=== PATIENT | female | born 1935 | race Caucasian/White ===

== ENCOUNTER 2020-12-07 19:01 | Inpatient (IN) | payer MEDICARE, OTHER ==
[~2020-12-07] VITALS: Ht 149.9 cm; Wt 58.1 kg
[2020-12-07 20:54] LABS: RED BLOOD COUNT 3.64 M/UL (4.00-5.10); WHITE BLOOD COUNT 12.2 K/UL (4.5-11.0)
[2020-12-07] MEDS ORDERED: LUMIGAN 0.01%2.5 ML EYEBOTH (22:18)
[2020-12-08 09:21] LABS: HEMOGLOBIN 10.6 gm/dl (12.3-15.3); RED BLOOD COUNT 3.61 M/UL (4.00-5.10)
[2020-12-08 09:45] LABS: BUN/CREATININE RATIO 24 (0-10)
[2020-12-08] MEDS ORDERED: ASPIRIN EC325 MG PO (11:25)
[2020-12-08 22:08] LABS: HEMOGLOBIN 7.8 gm/dl (12.3-15.3)
[2020-12-08] MEDS ORDERED: LATANOPROST2.5 ML OU (22:18)
--- NOTE | 2020-12-08 23:16 | NUR ---
AT 2235, POA AND NIECE, SHAKILA LOZANO, CALLED TO CHECK ON PT. POA WAS UPDATED ON PT CONDITION, THAT PT IS GOING TO RECEIVE 2 UNITS PRBC'S AND IS BEING TRANSFERRED TO PCU. VERBAL CONSENT GIVEN FROM TARAS OVER TELEPHONE, WITNESSED BY PRINCE ROMREO RN.
[2020-12-09 09:08] LABS: RED BLOOD COUNT 3.63 M/UL (4.00-5.10); WHITE BLOOD COUNT 8.2 K/UL (4.5-11.0)
[2020-12-12 12:01] LABS: HEMOGLOBIN 9.7 gm/dl (12.3-15.3); RED BLOOD COUNT 3.19 M/UL (4.00-5.10); WHITE BLOOD COUNT 8.3 K/UL (4.5-11.0)
[2020-12-13] MEDS ORDERED: HYGROTON TAB 2525 MG PO (14:33)
[2020-12-13] MEDS ORDERED: POLYETHYLENE GL17 GM PO (14:33)
[2020-12-13] MEDS ORDERED: VITAMIN D325 MCG PO (14:44)
[2020-12-14 05:02] LABS: RED BLOOD COUNT 2.98 M/UL (4.00-5.10)
[2020-12-15 03:47] LABS: HEMOGLOBIN 10.5 gm/dl (12.3-15.3); WHITE BLOOD COUNT 7.6 K/UL (4.5-11.0)
[2020-12-15 03:48] LABS: RED BLOOD COUNT 3.51 M/UL (4.00-5.10)
--- NOTE | 2020-12-15 15:58 | NUR ---
ENTERED PTS ROOM AFTER ALARM WENT OFF, UNABLE TO GET TO ROOM QUICK ENOUGH AND FOUND PT. LYING IN FLOOR. PT HAD SAFETY PRECAUTIONS IN PLACE, YELLOW GOWN AND NON SKID SOCKS. DR. LUA AND ORTHO NOTIFIED ABOUT PTS FALL. DR LUA STATES IS COMING TO ASSESS PT. SHORTLY. PT HAS NO VISIBLE SIGNS OF INJURY.
[2020-12-16 04:29] LABS: HEMOGLOBIN 9.7 gm/dl (12.3-15.3); RED BLOOD COUNT 3.26 M/UL (4.00-5.10)
[2020-12-16 04:42] LABS: WHITE BLOOD COUNT 10.4 K/UL (4.5-11.0)
[2020-12-17 03:31] LABS: HEMOGLOBIN 10.3 gm/dl (12.3-15.3); RED BLOOD COUNT 3.38 M/UL (4.00-5.10); WHITE BLOOD COUNT 9.9 K/UL (4.5-11.0)
[2020-12-18 06:08] LABS: HEMOGLOBIN 9.5 gm/dl (12.3-15.3); RED BLOOD COUNT 3.13 M/UL (4.00-5.10)
[2020-12-18 16:12] LABS: A/G RATIO 1.1 (0.7-1.7); ALBUMIN 2.5 g/dL (2.9-4.4); ALPHA-1-GLOBULIN 0.3 g/dL (0.0-0.4); ALPHA-2-GLOBULIN 0.7 g/dL (0.4-1.0); BETA GLOBULIN 0.9 g/dL (0.7-1.3); GAMMA GLOBULIN 0.3 g/dL (0.4-1.8); GLOBULIN, TOTAL 2.3 g/dL (2.2-3.9); IMMUNOGLOBULIN A, QN, SERUM 86 mg/dL (64-422); IMMUNOGLOBULIN G, QN, SERUM 415 mg/dL (586-1602); IMMUNOGLOBULIN M, QN, SERUM 35 mg/dL (26-217); M-SPIKE Not Observed g/dL (Not Observed); PROTEIN, TOTAL, SERUM 4.8 g/dL (6.0-8.5)
[2020-12-20 03:35] LABS: URINE 24 HOUR CALCIUM 236.5 mg/24 (100-300)
[2020-12-20 04:38] LABS: HEMOGLOBIN 8.3 gm/dl (12.3-15.3); WHITE BLOOD COUNT 7.8 K/UL (4.5-11.0)
[2020-12-20 04:44] LABS: RED BLOOD COUNT 2.77 M/UL (4.00-5.10)
[2020-12-20 05:18] LABS: BUN/CREATININE RATIO 34 (0-10)
[2020-12-21 05:50] LABS: HEMOGLOBIN 8.5 gm/dl (12.3-15.3); RED BLOOD COUNT 2.8 M/UL (4.00-5.10); WHITE BLOOD COUNT 9.4 K/UL (4.5-11.0)
[2020-12-21 06:17] LABS: BUN/CREATININE RATIO 24 (0-10)
[2020-12-22 05:05] LABS: HEMOGLOBIN 9.1 gm/dl (12.3-15.3); RED BLOOD COUNT 2.99 M/UL (4.00-5.10); WHITE BLOOD COUNT 9.6 K/UL (4.5-11.0)
[2020-12-22 05:34] LABS: BUN/CREATININE RATIO 21 (0-10)
[2020-12-23 10:04] LABS: RED BLOOD COUNT 2.98 M/UL (4.00-5.10); WHITE BLOOD COUNT 8.4 K/UL (4.5-11.0)
== END 2020-12-23 15:30 | DRG 481 ==
LOC: ER1 19:01 → M/S 21:02 → CDU 21:02 → PROG CARE 21:02 → M/S 12-08 19:06 → PROG CARE 12-08 23:00 → M/S 12-11 06:00
PROVIDERS: Emergency Medicine; Internal Medicine; Internal Medicine Nephrology; Nurse Practitioner Family; Orthopaedic Surgery; ADMIT Internal Medicine
PROC: 0QS806Z Reposition Right Femoral Shaft with Intramedullary Internal Fixation Device, Open Approach (ICD-10-PCS; principal; 2020-12-08 15:43)
PROC: B24BZZZ Ultrasonography of Heart with Aorta (ICD-10-PCS; 2020-12-21)
DX: S72.402A Unspecified fracture of lower end of left femur, initial encounter for closed fracture (principal); E44.0 Moderate protein-calorie malnutrition; I47.1 Supraventricular tachycardia; N39.0 Urinary tract infection, site not specified; G93.40 Encephalopathy, unspecified; D62 Acute posthemorrhagic anemia; Z20.822 Contact with and (suspected) exposure to COVID-19; E87.5 Hyperkalemia; J30.2 Other seasonal allergic rhinitis; I07.1 Rheumatic tricuspid insufficiency; H40.9 Unspecified glaucoma; I10 Essential (primary) hypertension; E83.39 Other disorders of phosphorus metabolism; T50.2X5A Adverse effect of carbonic-anhydrase inhibitors, benzothiadiazides and other diuretics, initial encounter; K59.00 Constipation, unspecified; I49.5 Sick sinus syndrome; E83.52 Hypercalcemia; W11.XXXA Fall on and from ladder, initial encounter; E21.0 Primary hyperparathyroidism; F03.90 Unspecified dementia, unspecified severity, without behavioral disturbance, psychotic disturbance, mood disturbance, and anxiety; Y93.89 Activity, other specified; Y92.89 Other specified places as the place of occurrence of the external cause; Y99.8 Other external cause status; Z79.899 Other long term (current) drug therapy; Z98.890 Other specified postprocedural states; Z83.6 Family history of other diseases of the respiratory system; Z68.25 Body mass index [BMI] 25.0-25.9, adult
CPT/HCPCS: ECHO; 36415; 36430; 70450; 71045; 73502; 73522; 73552; 73562; 76000; 80048; 80053; 80061; 80069; 81001; 82310; 82330; 82340; 82397; 82533; 82550; 82553; 82607; 82652; 82746; 82784; 83036; 83540; 83550; 83735; 83874; 83883; 83970; 84100; 84155; 84165; 84439; 84443; 84484; 85014; 85018; 85025; 85027; 85045; 85610; 85730; 86140; 86334; 86850; 86900; 86901; 86920; 87086; 93005; 93270; 93306; 96374; 96375; 97110; 97110-GP-CQ; 97116; 97116-GP-CQ; 97162; 97166; 97530; 97530-GP-CQ; 97535; 99285; C1713; G0378; J0690; J0696; J1170; J1650; J1940; J2001; J2270; J2370; J2405; J2430; J2704; J3486; J7030; J7040; J7050; J7060; J7120; P9016; U0002

== ENCOUNTER 2021-03-09 10:00 | Inpatient (IN) | payer MEDICARE, OTHER ==
[~2021-03-09] VITALS: Ht 149.9 cm; Wt 43.7 kg
[~2021-03-09 10:00] MED LIST: ASPIRIN EC325 MG PO; HYGROTON TAB 2525 MG PO; LATANOPROST2.5 ML OU; LUMIGAN 0.01%2.5 ML EYEBOTH; POLYETHYLENE GL17 GM PO; VITAMIN D325 MCG PO
[2021-03-09 11:28] LABS: BUN/CREATININE RATIO 22 (0-10)
[2021-03-09 12:01] LABS: HEMOGLOBIN 11.3 gm/dl (12.3-15.3); RED BLOOD COUNT 3.87 M/UL (4.00-5.10); WHITE BLOOD COUNT 17.3 K/UL (4.5-11.0)
[2021-03-09] MEDS ORDERED: LEXAPRO10 MG PO (12:57)
[2021-03-09] MEDS ORDERED: BISACODYL10 MG PR (15:00)
[2021-03-09] MEDS ORDERED: CYPROHEPTADINE H4 MG PO (15:00)
[2021-03-09] MEDS ORDERED: TRAMADOL HCL50 MG PO (15:01)
[2021-03-10 03:14] LABS: HEMOGLOBIN 10.2 gm/dl (12.3-15.3); RED BLOOD COUNT 3.54 M/UL (4.00-5.10); WHITE BLOOD COUNT 20.8 K/UL (4.5-11.0)
[2021-03-11 03:25] LABS: HEMOGLOBIN 8.8 gm/dl (12.3-15.3); RED BLOOD COUNT 3.02 M/UL (4.00-5.10); WHITE BLOOD COUNT 19.3 K/UL (4.5-11.0)
[2021-03-12 08:42] LABS: HEMOGLOBIN 8.3 gm/dl (12.3-15.3); RED BLOOD COUNT 2.86 M/UL (4.00-5.10); WHITE BLOOD COUNT 18.7 K/UL (4.5-11.0)
[2021-03-13 04:58] LABS: HEMOGLOBIN 7.8 gm/dl (12.3-15.3); RED BLOOD COUNT 2.66 M/UL (4.00-5.10); WHITE BLOOD COUNT 15.9 K/UL (4.5-11.0)
[2021-03-14 04:11] LABS: HEMOGLOBIN 7.4 gm/dl (12.3-15.3); RED BLOOD COUNT 2.61 M/UL (4.00-5.10)
[2021-03-14 05:07] LABS: BUN/CREATININE RATIO 22 (0-10)
[2021-03-15 04:16] LABS: RED BLOOD COUNT 2.82 M/UL (4.00-5.10)
[2021-03-15 04:19] LABS: WHITE BLOOD COUNT 15.3 K/UL (4.5-11.0)
[2021-03-15 04:24] LABS: BUN/CREATININE RATIO 19 (0-10)
[2021-03-16 03:28] LABS: HEMOGLOBIN 8.7 gm/dl (12.3-15.3); RED BLOOD COUNT 3.08 M/UL (4.00-5.10); WHITE BLOOD COUNT 12.9 K/UL (4.5-11.0)
[2021-03-17 06:26] LABS: HEMOGLOBIN 7.1 gm/dl (12.3-15.3); RED BLOOD COUNT 2.51 M/UL (4.00-5.10); WHITE BLOOD COUNT 9.1 K/UL (4.5-11.0)
[2021-03-17 07:11] LABS: VITAMIN D, 25-HYDROXY 45.6 ng/mL (30.0-100.0)
[2021-03-17 08:59] LABS: HEMOGLOBIN 7.6 gm/dl (12.3-15.3); RED BLOOD COUNT 2.62 M/UL (4.00-5.10); WHITE BLOOD COUNT 8.7 K/UL (4.5-11.0)
[2021-03-17 15:14] LABS: A/G RATIO 0.7 (0.7-1.7); ALBUMIN 1.8 g/dL (2.9-4.4); ALPHA-1-GLOBULIN 0.4 g/dL (0.0-0.4); ALPHA-2-GLOBULIN 0.9 g/dL (0.4-1.0); BETA GLOBULIN 0.7 g/dL (0.7-1.3); GAMMA GLOBULIN 0.6 g/dL (0.4-1.8); GLOBULIN, TOTAL 2.5 g/dL (2.2-3.9); M-SPIKE Comment: g/dL (Not Observed); PROTEIN, TOTAL, SERUM 4.3 g/dL (6.0-8.5)
[2021-03-18 04:19] LABS: HEMOGLOBIN 8.8 gm/dl (12.3-15.3); RED BLOOD COUNT 3.12 M/UL (4.00-5.10); WHITE BLOOD COUNT 7.8 K/UL (4.5-11.0)
[2021-03-19 05:29] LABS: RED BLOOD COUNT 2.78 M/UL (4.00-5.10)
[2021-03-20 06:17] LABS: HEMOGLOBIN 7.9 gm/dl (12.3-15.3); RED BLOOD COUNT 2.79 M/UL (4.00-5.10); WHITE BLOOD COUNT 7.4 K/UL (4.5-11.0)
[2021-03-21 04:00] LABS: HEMOGLOBIN 7.2 gm/dl (12.3-15.3); WHITE BLOOD COUNT 7.5 K/UL (4.5-11.0)
[2021-03-21 04:02] LABS: RED BLOOD COUNT 2.51 M/UL (4.00-5.10)
[2021-03-22 03:39] LABS: HEMOGLOBIN 7.1 gm/dl (12.3-15.3); RED BLOOD COUNT 2.52 M/UL (4.00-5.10); WHITE BLOOD COUNT 6.5 K/UL (4.5-11.0)
[2021-03-23 03:27] LABS: WHITE BLOOD COUNT 7.3 K/UL (4.5-11.0)
[2021-03-23 04:02] LABS: HEMOGLOBIN 9.6 gm/dl (12.3-15.3); RED BLOOD COUNT 3.37 M/UL (4.00-5.10)
[2021-03-23 14:14] LABS: A/G RATIO 0.7 (0.7-1.7); ALBUMIN 1.8 g/dL (2.9-4.4); ALPHA-1-GLOBULIN 0.4 g/dL (0.0-0.4); ALPHA-2-GLOBULIN 0.8 g/dL (0.4-1.0); BETA GLOBULIN 0.8 g/dL (0.7-1.3); GAMMA GLOBULIN 0.6 g/dL (0.4-1.8); GLOBULIN, TOTAL 2.6 g/dL (2.2-3.9); IMMUNOGLOBULIN A, QN, SERUM 138 mg/dL (64-422); IMMUNOGLOBULIN G, QN, SERUM 575 mg/dL (586-1602); IMMUNOGLOBULIN M, QN, SERUM 165 mg/dL (26-217); M-SPIKE Comment: g/dL (Not Observed); PROTEIN, TOTAL, SERUM 4.4 g/dL (6.0-8.5)
[2021-03-24 04:05] LABS: HEMOGLOBIN 10.8 gm/dl (12.3-15.3); WHITE BLOOD COUNT 6.9 K/UL (4.5-11.0)
[2021-03-24 04:06] LABS: RED BLOOD COUNT 3.77 M/UL (4.00-5.10)
[2021-03-26 07:28] LABS: RED BLOOD COUNT 3.81 M/UL (4.00-5.10); WHITE BLOOD COUNT 6.5 K/UL (4.5-11.0)
[2021-03-26] MEDS ORDERED: POTASSIUM CHLO20 ME1 PO (10:40)
[2021-03-26] MEDS ORDERED: SENSIPAR 30 MG30 MG PO (10:40)
[2021-03-26] MEDS ORDERED: RETACRIT4000 UNIT/ SC (10:40)
[2021-03-26] MEDS ORDERED: FERROUS GLUCON324 M1 PO (10:40)
[2021-03-26] MEDS ORDERED: SENSIPAR60 MG PO (11:02)
[2021-03-29 05:19] LABS: HEMOGLOBIN 11.5 gm/dl (12.3-15.3); WHITE BLOOD COUNT 7.9 K/UL (4.5-11.0)
[2021-03-29] MEDS ORDERED: [UNRECOGNIZED DRUG - CODE] IV ×2 (13:32→13:40)
== END 2021-03-29 19:53 | DRG 643 ==
LOC: ER1 10:00 → CDU 12:05 → M/S 12:05 → PROG CARE 12:05 → M/S 03-23 01:01
PROVIDERS: Emergency Medicine; Internal Medicine; Internal Medicine Infectious Disease; Internal Medicine Nephrology; ADMIT Internal Medicine
PROC: 30233N1 Transfusion of Nonautologous Red Blood Cells into Peripheral Vein, Percutaneous Approach (ICD-10-PCS; principal; 2021-03-22)
DX: E21.0 Primary hyperparathyroidism (principal); G93.41 Metabolic encephalopathy; U07.1 COVID-19; K85.90 Acute pancreatitis without necrosis or infection, unspecified; J69.0 Pneumonitis due to inhalation of food and vomit; N17.9 Acute kidney failure, unspecified; E46 Unspecified protein-calorie malnutrition; R64 Cachexia; N30.00 Acute cystitis without hematuria; E87.1 Hypo-osmolality and hyponatremia; E87.2 Acidosis; D50.9 Iron deficiency anemia, unspecified; F03.90 Unspecified dementia, unspecified severity, without behavioral disturbance, psychotic disturbance, mood disturbance, and anxiety; I49.5 Sick sinus syndrome; E86.0 Dehydration; F32.A Depression, unspecified; T50.2X5A Adverse effect of carbonic-anhydrase inhibitors, benzothiadiazides and other diuretics, initial encounter; R41.89 Other symptoms and signs involving cognitive functions and awareness; N20.0 Calculus of kidney; K59.00 Constipation, unspecified; E55.9 Vitamin D deficiency, unspecified; E87.6 Hypokalemia; I12.9 Hypertensive chronic kidney disease with stage 1 through stage 4 chronic kidney disease, or unspecified chronic kidney disease; N18.9 Chronic kidney disease, unspecified; D63.1 Anemia in chronic kidney disease; E16.2 Hypoglycemia, unspecified; E87.5 Hyperkalemia; Z79.899 Other long term (current) drug therapy; Z79.82 Long term (current) use of aspirin
CPT/HCPCS: 36415; 36430; 36600; 70450; 71045; 80048; 80053; 80202; 81001; 82340; 82436; 82550; 82553; 82607; 82652; 82728; 82746; 82784; 82803; 82962; 83540; 83550; 83690; 83735; 83874; 83880; 83883; 83970; 84100; 84132; 84133; 84155; 84165; 84207; 84300; 84484; 85025; 85027; 85610; 85810; 86334; 86850; 86900; 86901; 86920; 87040; 87077; 87086; 87186; 92526; 92610; 93005; 97110-GP-CQ; 97162; 97530; 97530-GP-CQ; 99285; J0696; J0885; J1335; J1650; J1756; J2270; J2430; J3370; J3475; J3480; J7030; J7070; P9016; Q5106; Q9967; U0002

== ENCOUNTER 2021-04-27 12:39 | Inpatient (IN) | payer MEDICARE ==
[~2021-04-27] VITALS: Ht 154.9 cm; Wt 44.9 kg
[~2021-04-27 12:39] MED LIST changes: +BISACODYL10 MG PR; +CYPROHEPTADINE H4 MG PO; +FERROUS GLUCON324 M1 PO; +LATANOPROST 0.7.5 ML OU; -LATANOPROST2.5 ML OU; +LEXAPRO10 MG PO; +POTASSIUM CHLO20 ME1 PO; +RETACRIT4000 UNIT/ SC; +SENSIPAR 30 MG30 MG PO; +SENSIPAR60 MG PO; +TRAMADOL HCL50 MG PO; +[UNRECOGNIZED DRUG - CODE] IV
[2021-04-27 13:45] LABS: RED BLOOD COUNT 4.64 M/UL (4.00-5.10); WHITE BLOOD COUNT 12.1 K/UL (4.5-11.0)
[2021-04-27] MEDS ORDERED: RETACRIT4000 UNIT/ SQ (18:29)
[2021-04-27] MEDS ORDERED: MIRALAX17 GM PO (18:31)
[2021-04-27] MEDS ORDERED: CYPROHEPTADINE H4 MG PO (18:32)
[2021-04-27] MEDS ORDERED: VITAMIN D325 MCG PO (18:32)
[2021-04-27] MEDS ORDERED: ZYVOX600 MG PO (18:33)
[2021-04-27] MEDS ORDERED: ONDANSETRON ODT4 MG PO (18:33)
[2021-04-27] MEDS ORDERED: GLUCAGON EMERGEN1 MG INJ (18:35)
[2021-04-28 07:10] LABS: HEMOGLOBIN 11.8 gm/dl (12.3-15.3); RED BLOOD COUNT 3.93 M/UL (4.00-5.10)
[2021-04-29 07:15] LABS: HEMOGLOBIN 10.3 gm/dl (12.3-15.3)
[2021-04-29 07:16] LABS: RED BLOOD COUNT 3.46 M/UL (4.00-5.10); WHITE BLOOD COUNT 8.3 K/UL (4.5-11.0)
[2021-04-30 06:34] LABS: HEMOGLOBIN 10.5 gm/dl (12.3-15.3); RED BLOOD COUNT 3.63 M/UL (4.00-5.10); WHITE BLOOD COUNT 6.8 K/UL (4.5-11.0)
[2021-04-30] MEDS ORDERED: PROTONIX40 MG PO (12:20)
== END 2021-04-30 16:42 | DRG 871 ==
LOC: ER1 12:39 → CDU 17:41 → M/S 19:40
PROVIDERS: Emergency Medicine; ADMIT Internal Medicine
DX: A41.59 Other Gram-negative sepsis (principal); E43 Unspecified severe protein-calorie malnutrition; U07.1 COVID-19; E87.2 Acidosis; N17.9 Acute kidney failure, unspecified; K80.10 Calculus of gallbladder with chronic cholecystitis without obstruction; Z68.1 Body mass index [BMI] 19.9 or less, adult; N39.0 Urinary tract infection, site not specified; B96.1 Klebsiella pneumoniae [K. pneumoniae] as the cause of diseases classified elsewhere; E21.3 Hyperparathyroidism, unspecified; E86.0 Dehydration; F03.90 Unspecified dementia, unspecified severity, without behavioral disturbance, psychotic disturbance, mood disturbance, and anxiety; N18.30 Chronic kidney disease, stage 3 unspecified; I12.9 Hypertensive chronic kidney disease with stage 1 through stage 4 chronic kidney disease, or unspecified chronic kidney disease; I49.5 Sick sinus syndrome; K27.9 Peptic ulcer, site unspecified, unspecified as acute or chronic, without hemorrhage or perforation; K29.70 Gastritis, unspecified, without bleeding; K29.80 Duodenitis without bleeding; E83.52 Hypercalcemia; Z79.899 Other long term (current) drug therapy; Z23 Encounter for immunization
CPT/HCPCS: 36415; 51702; 71045; 76705; 80053; 81001; 82436; 82550; 82553; 82570; 82962; 83605; 83690; 83735; 83874; 84100; 84132; 84133; 84156; 84300; 84484; 85025; 85610; 86140; 87040; 87077; 87086; 87186; 90686; 93005; 96374; 96375; 99285; A6212; C9113; G0008; J0696; J1335; J2185; J2405; J3475; J3486; J7030; J7070; U0002

== ENCOUNTER 2021-09-01 16:02 | Inpatient (IN) | payer MEDICARE ==
[~2021-09-01] VITALS: Ht 157.5 cm; Wt 38.1 kg
[~2021-09-01 16:02] MED LIST changes: +FERROUS SU300 MG/5 M PO; +GENTLE LAXATIVE10 MG PR; +GLUCAGON EMERGEN1 MG INJ; +JUVEN PACKET1 EACH PO; +LOTRISONE TOP; +MIRALAX17 GM PEG; +NYSTOP60 GM TOP; +ONDANSETRON ODT4 MG PO; +POTASSIUM CHLO10 MEQ PO; +PROTONIX40 MG PO; +ZINC-22050 MG PO; +ZYVOX600 MG PO
[2021-09-01 17:06] LABS: HEMOGLOBIN 10.6 gm/dl (12.3-15.3); RED BLOOD COUNT 3.38 M/UL (4.00-5.10); WHITE BLOOD COUNT 13.7 K/UL (4.5-11.0)
[2021-09-01] MEDS ORDERED: SENSIPAR60 MG PEG (22:44)
[2021-09-02 03:32] LABS: RED BLOOD COUNT 2.56 M/UL (4.00-5.10)
[2021-09-02] MEDS ORDERED: GLUCOSE GEL38 GM PEG (08:56)
[2021-09-02] MEDS ORDERED: RETACRIT4000 UNIT/ SQ (18:29)
[2021-09-03 05:15] LABS: HEMOGLOBIN 5.8 gm/dl (12.3-15.3); RED BLOOD COUNT 1.89 M/UL (4.00-5.10); WHITE BLOOD COUNT 12.8 K/UL (4.5-11.0)
--- NOTE | 2021-09-03 07:57 | NUR ---
KNAPP CATHETER CHANGED FOR TEMP SENSING KNAPP FOR CORE TEMP MONITORING RELATED TO HYPOTHERMIA
[2021-09-03 21:22] LABS: RED BLOOD COUNT 4.04 M/UL (4.00-5.10); WHITE BLOOD COUNT 11.2 K/UL (4.5-11.0)
[2021-09-03 21:23] LABS: HEMOGLOBIN 11.9 gm/dl (12.3-15.3)
[2021-09-04 05:20] LABS: HEMOGLOBIN 11.7 gm/dl (12.3-15.3); RED BLOOD COUNT 4.01 M/UL (4.00-5.10)
[2021-09-05 01:22] LABS: HEMOGLOBIN 11.8 gm/dl (12.3-15.3); RED BLOOD COUNT 4.09 M/UL (4.00-5.10); WHITE BLOOD COUNT 9.6 K/UL (4.5-11.0)
[2021-09-06 01:44] LABS: HEMOGLOBIN 13.8 gm/dl (12.3-15.3); RED BLOOD COUNT 4.71 M/UL (4.00-5.10); WHITE BLOOD COUNT 12.2 K/UL (4.5-11.0)
[2021-09-07 02:12] LABS: HEMOGLOBIN 13.1 gm/dl (12.3-15.3); RED BLOOD COUNT 4.54 M/UL (4.00-5.10); WHITE BLOOD COUNT 11.9 K/UL (4.5-11.0)
[2021-09-08 06:28] LABS: HEMOGLOBIN 13.9 gm/dl (12.3-15.3); RED BLOOD COUNT 4.81 M/UL (4.00-5.10); WHITE BLOOD COUNT 13.8 K/UL (4.5-11.0)
[2021-09-08 15:13] LABS: ALKALINE PHOSPHATASE, S 100 IU/L (44-121); BONE FRACTION: 43 % (14-68); INTESTINAL FRAC.: 23 % (0-18); LIVER FRACTION: 34 % (18-85)
[2021-09-09 03:00] LABS: HEMOGLOBIN 13.3 gm/dl (12.3-15.3); RED BLOOD COUNT 4.58 M/UL (4.00-5.10); WHITE BLOOD COUNT 11.5 K/UL (4.5-11.0)
[2021-09-09] MEDS ORDERED: PROTONIX40 MG PEG (13:55)
[2021-09-09] MEDS ORDERED: TYLENOL ELIXIR PEG (13:55)
[2021-09-09] MEDS ORDERED: TRAMADOL HCL50 MG PEG (14:15)
--- NOTE | 2021-09-09 18:15 | NUR ---
REPORT CALLED TO SHAKILA AT [facility].
== END 2021-09-09 19:18 | DRG 438 ==
LOC: ER1 16:02 → CDU 21:55 → PROG CARE 21:55 → CCU 21:55 → PROG CARE 09-03 15:47 → MED SURG 4 09-07 19:59
PROVIDERS: Internal Medicine; Internal Medicine Infectious Disease; Internal Medicine Nephrology; Preventive Medicine Occupational Medicine; ADMIT Internal Medicine
PROC: 3E043XZ Introduction of Vasopressor into Central Vein, Percutaneous Approach (ICD-10-PCS; principal; 2021-09-01)
PROC: 30233N1 Transfusion of Nonautologous Red Blood Cells into Peripheral Vein, Percutaneous Approach (ICD-10-PCS; 2021-09-03)
DX: K85.90 Acute pancreatitis without necrosis or infection, unspecified (principal); R57.1 Hypovolemic shock; E43 Unspecified severe protein-calorie malnutrition; N17.9 Acute kidney failure, unspecified; E87.0 Hyperosmolality and hypernatremia; K62.5 Hemorrhage of anus and rectum; D62 Acute posthemorrhagic anemia; Z68.1 Body mass index [BMI] 19.9 or less, adult; J98.11 Atelectasis; Z66 Do not resuscitate; E83.52 Hypercalcemia; E86.0 Dehydration; K27.9 Peptic ulcer, site unspecified, unspecified as acute or chronic, without hemorrhage or perforation; E03.9 Hypothyroidism, unspecified; K80.20 Calculus of gallbladder without cholecystitis without obstruction; E87.6 Hypokalemia; R13.12 Dysphagia, oropharyngeal phase; I49.5 Sick sinus syndrome; I12.9 Hypertensive chronic kidney disease with stage 1 through stage 4 chronic kidney disease, or unspecified chronic kidney disease; E83.39 Other disorders of phosphorus metabolism; N18.30 Chronic kidney disease, stage 3 unspecified; F03.90 Unspecified dementia, unspecified severity, without behavioral disturbance, psychotic disturbance, mood disturbance, and anxiety; R62.7 Adult failure to thrive; L89.151 Pressure ulcer of sacral region, stage 1; E21.3 Hyperparathyroidism, unspecified; Z74.01 Bed confinement status; Z79.899 Other long term (current) drug therapy; Z93.1 Gastrostomy status; Z87.11 Personal history of peptic ulcer disease
CPT/HCPCS: 36415; 51702; 71045; 76705; 80048; 80053; 80202; 81001; 82150; 82652; 82962; 83605; 83690; 83735; 83970; 84075; 84080; 84100; 84132; 84439; 84443; 85018; 85025; 85652; 86140; 86850; 86900; 86901; 86920; 87040; 87086; 96374; 96375; 99284; C9113; J0692; J0696; J1200; J2543; J3370; J3475; J3480; J7030; J7040; J7070; P9016; P9047; U0002

== ENCOUNTER 2021-10-11 22:50 | Emergency (ER) | payer MEDICARE ==
[~2021-10-11 22:50] MED LIST changes: +GLUCOSE GEL38 GM PEG; +PROTONIX40 MG PEG; +RETACRIT4000 UNIT/ SQ; +SENSIPAR60 MG PEG; +TRAMADOL HCL50 MG PEG; +TYLENOL ELIXIR PEG
[2021-10-12 00:32] LABS: RED BLOOD COUNT 4.39 M/UL (4.00-5.10); WHITE BLOOD COUNT 11.9 K/UL (4.5-11.0)
== END 2021-10-12 05:46 | disposition home or self-care (01) ==
LOC: ER1 22:50
PROVIDERS: Student in an Organized Health Care Education/Training Program
DX: E86.0 Dehydration (principal); I10 Essential (primary) hypertension
CPT/HCPCS: 80053; 85025; 93005; 99285